=== PATIENT | male | born 1935 | race Caucasian/White ===

== ENCOUNTER → 2023-12-21 08:17 | Outpatient (REF) | payer MEDICARE, SELFPAY | LOC: RAD 08:17 | PROVIDERS: ATTENDING PHYSICIAN Student in an Organized Health Care Education/Training Program | DX: R09.89 Other specified symptoms and signs involving the circulatory and respiratory systems (principal) | CPT/HCPCS: 93922; 93925 ==

== ENCOUNTER 2024-05-20 14:42 | Emergency (ER) | payer MEDICARE, SELFPAY ==
[2024-05-20 14:45] VITALS: BP 140/60
--- NOTE | 2024-05-20 15:37 | ED.MUSCINJ ---
HPI-Injury
General
Chief Complaint: Musculo-Skeletal Complaint
Source: patient and family
Exam Limitations: none
Time Seen by Provider: 05/20/24 15:17
Nursing documentation reviewed up to this point in time: agreed with
History of Present Illness-Injury
Initial Injury comments:
89-year-old male with history of HLD, Parkinson's, lives at [facility], custodial, was walking down a carpeted hallway to his apartment and he stumbled and fell. He was able to get himself up and walk the rest of the way to his apartment.
This happened at 6 PM last night. He called his daughter who went over to see how he was doing and she noted the knee was swollen, she iced it and gave him a Celebrex and put him to bed. This morning he called her at 8 AM stating the pain was
worse, she went over given another Celebrex at 8 AM and at 11 AM gave him 2 Tylenol and applied ice again. He he did mildly scrape the right side of his forehead just above the eyebrow but denies any significant pact to his head, he is not
anticoagulated. He denies headache, neck pain, back pain, denies any other injury.
He does have a history of chronic bilateral knee pain for which he takes the Celebrex as needed.
Past History
Past History
ED Past Medical History: Hypercholesterolemia, Other (Chronic bilateral knee pain, arthritis) and Other (Parkinson's)
Social History
Tobacco: Non-smoker
Alcohol: None
Personal:
Living: other ([facility])
Review of Systems
Review of Systems
Allergies reviewed?: Yes
All Other Systems: ROS reviewed and negative except as documented in HPI and ROS
Respiratory: Denies trouble breathing
Cardiac: Denies chest pain, palpitations or syncope
ABD/GI: Denies abdominal pain or nausea
Musculoskeletal: Reports other (Chronic bilateral knee pain: Told he needs knee replacements with his Parkinson's surgery has not been done., He now has swelling, ecchymosis and pain left knee); Denies neck pain or back pain
Skin: Reports other (Mild abrasion right forehead)
Neurological: Reports no symptoms
Phy Exam
Physical Exam
Physical Exam:
GENERAL: No acute distress. A&Ox3.
CONSTITUTIONAL: Afebrile.
EYES: PERRL, conjunctivae normal
Neck: Supple
ENMT: moist mucus membranes, Pharynx nl
RESPIRATORY: Regular respirations, nonlabored, lungs clear.
CARDIOVASCULAR: Regular rate and rhythm, no murmurs, no rubs.
GI: Soft, nontender, normal BS
MUSCULOSKELETAL: No spinal bony tenderness. Left knee is mildly to moderately swollen, mildly ecchymotic, tender over patella where there is a mild abrasion. The rest of extremities are nontender with adequate range of motion. Moves with ease.
Well perfused.
SKIN: Warm, dry, pink, dime sized deep clean abrasion just above the right eyebrow
PSYCH: Normal mood and affect. Well kept, interactive and appropriate
NEUROLOGIC: Awake, alert and oriented. Speech clear. Cranial nerves II through XII intact. No focal neurological deficits
Injury Course
Orders/Labs/Results
Orders:
Orders
05/20/24 14:53
Knee, Left 4 or More Views [CR Knee - Left 4 Or More View*] Urgent
Comment:
Reason For Exam: fall
05/20/24 15:37
Knee Immobilizer Left-Treatmen ONCE
MDM/Problems Addressed
Differential Diagnosis Includes:
Contusion knee, fracture knee
MDM/Problems Addressed:
89-year-old male with history of HLD, Parkinson's, lives at [facility], custodial, was walking down a carpeted hallway to his apartment and he stumbled and fell. He was able to get himself up and walk the rest of the way to his apartment.
This happened at 6 PM last night. He called his daughter who went over to see how he was doing and she noted the knee was swollen, she iced it and gave him a Celebrex and put him to bed. This morning he called her at 8 AM stating the pain was
worse, she went over given another Celebrex at 8 AM and at 11 AM gave him 2 Tylenol and applied ice again. He he did mildly scrape the right side of his forehead just above the eyebrow but denies any significant pact to his head, he is not
anticoagulated. He denies headache, neck pain, back pain, denies any other injury.
He does have a history of chronic bilateral knee pain for which he takes the Celebrex as needed
X-ray left knee initially read by this examiner: There is a comminuted nondisplaced fracture of the patella.
Patient was fitted for a long knee immobilizer and was able to get up out of bed and ambulate with a walker afterwards.
He is referred to orthopedics for follow-up
*Critical Care Note
Total Time (30-74mins, 75-104mins- exclusive of procedures): Not Applicable
ED Attending Note
-
Portions of this chart may have been created with voice recognition software.� Occasional wrong word or��sound alike� substitutions may have occurred due to the inherent limitations of voice recognition software.
Discharge Plan
Departure
Patient Disposition: Home (Routine Discharge)
Date of Disposition: 05/20/24
Time of Disposition: 15:49
Patient with high blood pressure during this ER visit?: No
Condition: Good
Discharge Problem:
Fall from slip, trip, or stumble, Fracture of left patella
Instructions: Patella Fracture, Knee Immobilizer (DC), Using Cold for Pain
Referrals:
Jean Abad MD [Active] - Call in 1-3 days for appt
Activity Restrictions/Additional Instructions:
As we discussed, keep the knee immobilizer on at all times when up and around.
You may remove it to change your pants and then reapply it.
You may open it to apply cold compress 20 minutes off and on is much as you can today and over the weekend.
Use your walker at all times when up and around
You may use your Celebrex as prescribed for pain, you may also use Tylenol extra strength (1000 mg) up to 3 times a day, do not take more than 3000 mg in a 24-hour period
Call the orthopedic doctors office Thursday and make next available appointment.
Interventions
Interventions:
*Risk Screen - Suicide Last Done: 05/20/24 14:45
*General Assessment Last Done: 05/20/24 14:45
*Neglect/Abuse Screening Last Done: 05/20/24 14:45
*Nursing Disposition Last Done: 05/20/24 16:08
ED-Musculoskeletal Assessment Last Done: 05/20/24 15:05
Discharge Date and Time
Print Language: [place]
[2024-05-20 16:08] VITALS: BP 140/60
== END 2024-05-20 16:08 | disposition home or self-care (01) ==
LOC: EMR 14:42
PROVIDERS: EMERGENCY PHYSICIAN Emergency Medicine
DX: S82.002A Unspecified fracture of left patella, initial encounter for closed fracture (principal); S00.81XA Abrasion of other part of head, initial encounter; W01.0XXA Fall on same level from slipping, tripping and stumbling without subsequent striking against object, initial encounter; G20.A1 Parkinson's disease without dyskinesia, without mention of fluctuations; E78.00 Pure hypercholesterolemia, unspecified; G89.29 Other chronic pain
CPT/HCPCS: 99283; 29505; 73564